=== PATIENT | female | born 1950 | race Caucasian/White ===

== ENCOUNTER 2017-07-26 08:31 | Outpatient (CLI) | payer OTHER | END 2017-07-26 10:46 | disposition home or self-care (01) | LOC: EDBD 08:31 → MAMO-SONO 08:31 | DX: Z12.31 Encounter for screening mammogram for malignant neoplasm of breast (principal); Z87.898 Personal history of other specified conditions; N95.8 Other specified menopausal and perimenopausal disorders ==

== ENCOUNTER → 2017-07-26 | Outpatient (CLI) | payer OTHER | END | disposition home or self-care (01) | LOC: NUCLEAR 11:00 → EDBD 11:00 → NUCLEAR 11:36 | DX: E55.0 Rickets, active (principal); M81.0 Age-related osteoporosis without current pathological fracture ==

== ENCOUNTER 2018-08-27 12:53 | Outpatient (CLI) | payer OTHER | END 2018-08-27 12:57 | disposition home or self-care (01) | LOC: RAD 12:53 | DX: Z12.31 Encounter for screening mammogram for malignant neoplasm of breast (principal); Z87.898 Personal history of other specified conditions; N60.11 Diffuse cystic mastopathy of right breast; N60.12 Diffuse cystic mastopathy of left breast; M12.861 Other specific arthropathies, not elsewhere classified, right knee; M12.862 Other specific arthropathies, not elsewhere classified, left knee ==

== ENCOUNTER → 2018-09-10 | Outpatient (CLI) | payer OTHER | END | disposition home or self-care (01) | LOC: SONOGRAMA 11:54 | DX: M12.861 Other specific arthropathies, not elsewhere classified, right knee (principal); M12.862 Other specific arthropathies, not elsewhere classified, left knee; M15.0 Primary generalized (osteo)arthritis ==

== ENCOUNTER 2019-12-23 09:52 | Outpatient (CLI) | payer OTHER | END 2019-12-23 12:53 | disposition home or self-care (01) | LOC: SONOGRAMA 09:52 → MAMO-SONO 10:15 → SONOGRAMA 12:53 | PROVIDERS: ATTEND Internal Medicine Cardiovascular Disease | DX: M12.811 Other specific arthropathies, not elsewhere classified, right shoulder (principal) ==

== ENCOUNTER 2020-01-14 09:33 | Outpatient (CLI) | payer OTHER | END 2020-01-14 09:41 | disposition home or self-care (01) | LOC: LAB 09:33 | PROVIDERS: ATTEND Orthopaedic Surgery | DX: E88.89 Other specified metabolic disorders (principal); M85.88 Other specified disorders of bone density and structure, other site; E55.9 Vitamin D deficiency, unspecified; E21.2 Other hyperparathyroidism; M81.8 Other osteoporosis without current pathological fracture; E56.1 Deficiency of vitamin K ==

== ENCOUNTER 2021-02-27 14:06 | Outpatient (CLI) | payer OTHER | END 2021-02-27 14:12 | disposition home or self-care (01) | LOC: MAMO-SONO 14:06 | PROVIDERS: ATTEND Internal Medicine Endocrinology, Diabetes & Metabolism | DX: N60.11 Diffuse cystic mastopathy of right breast (principal); N60.12 Diffuse cystic mastopathy of left breast; Z12.31 Encounter for screening mammogram for malignant neoplasm of breast ==

== ENCOUNTER 2023-06-14 10:59 | Outpatient (CLI) | payer OTHER | END 2023-06-14 11:01 | disposition home or self-care (01) | LOC: NUCLEAR 10:59 | PROVIDERS: ATTEND Internal Medicine Cardiovascular Disease | DX: I10 Essential (primary) hypertension (principal) ==

== ENCOUNTER 2023-06-14 12:18 | Outpatient (CLI) | payer OTHER | END 2023-06-14 12:27 | disposition home or self-care (01) | LOC: RAD 12:18 | PROVIDERS: ATTEND Internal Medicine Cardiovascular Disease | DX: J44.9 Chronic obstructive pulmonary disease, unspecified (principal) ==

== ENCOUNTER 2023-06-18 08:58 | Outpatient (CLI) | payer OTHER | END 2023-06-18 08:59 | disposition home or self-care (01) | LOC: NUCLEAR 08:58 | PROVIDERS: ATTEND Internal Medicine Cardiovascular Disease | DX: I10 Essential (primary) hypertension (principal); J44.9 Chronic obstructive pulmonary disease, unspecified ==